=== PATIENT | male | born 1950 | race Caucasian/White ===

== ENCOUNTER 2019-10-17 22:30 | Emergency (ER) | payer BC, MEDICARE ==
[2019-10-17] MEDS ORDERED: Acetaminophen/HYDROcodone 325-10 MG Tab PO ONE (22:31)
[2019-10-17] MEDS ORDERED: Silver Sulfadiazine 1% Crm 50 GM Tube TOP ONE (23:30)
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
[2019-10-18] MEDS ORDERED: Acetaminophen/HYDROcodone 325-10 MG Tab ONE (00:06)
== END 2019-10-18 00:06 | disposition home or self-care (01) ==
LOC: DL.ED 22:30
DX: T65.891A Toxic effect of other specified substances, accidental (unintentional), initial encounter (principal); T23.651A Corrosion of second degree of right palm, initial encounter
CPT/HCPCS: 16020; 99283; A9270